=== PATIENT | female | born 1990 | race Caucasian/White ===

== ENCOUNTER 2016-06-26 18:52 | Emergency (ER) | payer SELFPAY ==
[~2016-06-26 18:52] MED LIST: COLACE 100MG C100 MG PO; IBUPROFEN600 MG PO; NORCO 5-325 TA1 EACH PO
== END 2016-06-26 22:00 | disposition left against medical advice (07) ==
LOC: ER1 18:52
DX: Z53.21 Procedure and treatment not carried out due to patient leaving prior to being seen by health care provider (principal)

== ENCOUNTER 2016-06-27 10:48 | Emergency (ER) | payer OTHER | END 2016-06-27 14:15 | disposition home or self-care (01) | LOC: ER1 10:48 | DX: S06.9X1A Unspecified intracranial injury with loss of consciousness of 30 minutes or less, initial encounter (principal); G40.909 Epilepsy, unspecified, not intractable, without status epilepticus; Z88.0 Allergy status to penicillin; Z79.899 Other long term (current) drug therapy | CPT/HCPCS: 70450; 84703; 99284 ==

== ENCOUNTER 2016-08-16 14:49 | Emergency (ER) | payer SELFPAY | END 2016-08-16 16:25 | disposition home or self-care (01) | LOC: ER1 14:49 | DX: S93.601A Unspecified sprain of right foot, initial encounter (principal); G40.909 Epilepsy, unspecified, not intractable, without status epilepticus; F17.210 Nicotine dependence, cigarettes, uncomplicated; Z88.0 Allergy status to penicillin; Z79.899 Other long term (current) drug therapy; W01.0XXA Fall on same level from slipping, tripping and stumbling without subsequent striking against object, initial encounter | CPT/HCPCS: 73630; 99283 ==

== ENCOUNTER 2016-09-24 23:02 | Emergency (ER) | payer SELFPAY ==
[2016-09-25 01:15] LABS: HEMOGLOBIN 12.1 gm/dl (12.3-15.3); RED BLOOD COUNT 3.95 M/UL (4.00-5.10); WHITE BLOOD COUNT 12.2 K/UL (4.5-11.0)
[2016-09-25 01:35] LABS: BUN/CREATININE RATIO 8 (0-10)
== END 2016-09-25 03:45 | disposition home or self-care (01) ==
LOC: ER1 23:02
PROVIDERS: Family Medicine
DX: G40.909 Epilepsy, unspecified, not intractable, without status epilepticus (principal); F17.200 Nicotine dependence, unspecified, uncomplicated; Z79.899 Other long term (current) drug therapy
CPT/HCPCS: 36415; 80053; 85025; 96374; 99285; J2060

== ENCOUNTER 2016-10-11 22:11 | Emergency (ER) | payer OTHER ==
[2016-10-12 00:44] LABS: HEMOGLOBIN 11.8 gm/dl (12.3-15.3); RED BLOOD COUNT 3.83 M/UL (4.00-5.10); WHITE BLOOD COUNT 9.4 K/UL (4.5-11.0)
[2016-10-12 01:16] LABS: BUN/CREATININE RATIO 10 (0-10)
== END 2016-10-12 03:08 | disposition home or self-care (01) ==
LOC: ER1 22:11
PROVIDERS: Family Medicine
DX: G40.909 Epilepsy, unspecified, not intractable, without status epilepticus (principal); F17.200 Nicotine dependence, unspecified, uncomplicated; Z88.0 Allergy status to penicillin; Z79.899 Other long term (current) drug therapy
CPT/HCPCS: 36415; 80053; 81001; 85025; 99285